=== PATIENT | female | born 1965 | race Caucasian/White ===

== ENCOUNTER → 2017-05-20 | Day surgery (SDC) | payer BC ==
[~2017-05-20] MED LIST: AUGMENTIN875 M1 DOB; FISH OIL 1,0001 EAC4; NO MEDICATIONS; NORCO 5/325 TAB1 TAB PO; VIT B12 PO
--- NOTE | ~2017-05-20 | OR ---
Unit #: [id number] #: [id number] Patient: LISA CARRIZALES [id number] [address] [id number] [id number] MR#: [id number] NAME: LISA CARRIZALES ROOM: Date of Procedure: 05/20/2017 Admission Date: 05/20/2017 Surgeon: Ochoa Dimas M.D. : 1965 Attending Physician: Ochoa Dimas M.D. Primary Care Physician: Beryl Benitez M.D. OPERATIVE REPORT PREOPERATIVE DIAGNOSIS Left carpal tunnel syndrome. POSTOPERATIVE DIAGNOSIS Left carpal tunnel syndrome. PROCEDURE PERFORMED Left carpal tunnel release. [employer] Carolyn Wilkes APRN, RNFA. ANESTHESIA Hannah block. ESTIMATED BLOOD LOSS 5 mL. TOURNIQUET TIME 32 minutes. COMPLICATIONS None apparent. INDICATIONS FOR PROCEDURE Lisa is a 52-year-old female with bilateral moderate to severe carpal tunnel syndrome. She has been referred for carpal tunnel release. Risks, benefits, and alternatives have been reviewed. She elected to proceed with an open carpal tunnel release. DESCRIPTION OF PROCEDURE The patient was identified in the preoperative holding area. The operative site was marked. An IV was placed in the operative extremity. The patient was then brought to the operating room by Anesthesia personnel. She was placed supine on the operating table. The [place] block was then performed. The left arm was then prepped and draped in sterile fashion. The arm had previously been exsanguinated for the block. The skin incision was marked out over the palm of the left hand. Standard landmarks were identified. The skin was incised sharply and dissection carried down to the palmar fascia. The palmar fascia was divided. Unit #: [id number] #: [id number] Patient: LISA CARRIZALES Dissection was carried out to the distal extent of the transverse carpal ligament. A small mosquito hemostat was advanced over the distal edge of the transverse carpal ligament and then into the carpal canal. A 15-blade knife was then used to incise directly on the hemostat releasing the transverse carpal ligament. We carried our release from distal to proximal direction. The hemostat was advanced progressively deeper into the canal spreading both above and below the transverse carpal ligament to minimize any risk of injury to the recurrent motor branch of the median nerve. We carried the release proximally into the distal forearm fascia. Several more fascial bands were then released out distally. Care was taken to avoid injury to the superficial palmar arch. Once we had an adequate release both proximally and distally, the tourniquet was deflated. The wound was irrigated with sterile saline via bulb lavage. Hemostasis was achieved with a combination of bipolar and Bovie electrocautery. The wound was then closed with 3-0 nylon sutures in a horizontal mattress fashion. A dry sterile dressing was applied. DISPOSITION Stable to the recovery room. Dictated by... Nilda Krueger/elie TD: 05/20/2017 17:53 JOB #: [id number] OPERATIVE REPORT Page 1 of 1 X Ochoa Dimas MD X PROCEDURE OPERATIVE NOTE
== END | disposition home or self-care (01) ==
LOC: CSUR 05:25
DX: G56.02 Carpal tunnel syndrome, left upper limb (principal); J45.909 Unspecified asthma, uncomplicated; Z88.8 Allergy status to other drugs, medicaments and biological substances; Z98.51 Tubal ligation status; Z98.890 Other specified postprocedural states
CPT/HCPCS: J2250; J3010